=== PATIENT | female | born 1950 | race African-American/Black ===

== ENCOUNTER 2016-11-18 09:58 | Emergency (ER) | payer OTHER ==
[2016-11-18 10:14] VITALS: BMI 37.5
--- NOTE | 2016-11-18 10:33 | PDOC ---
History of Present Illness - General History Source: Patient Exam Limitations: No Limitations <Debby Gloria - Last Filed: 11/18/16 12:10> - General History Source: Patient Exam Limitations: No Limitations - History of Present Illness Initial Comments: 11/18/16 11:50 The patient is a 66-year-old female with a significant past medical history of diabetes, hypertension, and hypercholesterolemia, and presents to the emergency department with fever, sore throat, and body aches for 2 days. The patient reports a fever (Tmax 102 F). She reports associated headache, rhinorrhea, and a non-productive cough. She states she took Motrin and Tylenol yesterday with minimal relief. The patient denies any sick contacts or recent travel. She reports she received the flu shot this year. The patient denies chest pain, shortness of breath and dizziness. The patient denies chills, abdominal pain, nausea, vomit, diarrhea and constipation. The patient denies dysuria, frequency, urgency and hematuria. Allergies: NKDA Social History: Denies any toxic habits PCP: Dr. Hunter Olmstead <Jhoana Mak - Last Filed: 11/18/16 12:17> - General Chief Complaint: Respiratory Stated Complaint: FEVER/BODY PAIN Time Seen by Provider: 11/18/16 10:23 Past History - Past Medical History Diabetes: Yes HTN: Yes Hypercholesterolemia: Yes - Psycho/Social/Smoking Cessation Hx Anxiety: No Suicidal Ideation: No Smoking Status: No Smoking History: Never smoked Have you smoked in the past 12 months: No Number of Cigarettes Smoked Daily: 0 Information on smoking cessation initiated: No Hx Alcohol Use: No Drug/Substance Use Hx: No Substance Use Type: None <Debby Gloria - Last Filed: 11/18/16 12:10> <Jhoana Mak - Last Filed: 11/18/16 12:17> - Past Medical History Allergies/Adverse Reactions: Allergies Allergy/AdvReac Type Severity Reaction Status Date / Time No Known Allergies Allergy Verified 11/18/16 10:12 Home Medications: Ambulatory Orders Glipizide 5 mg PO DAILY 11/18/16 Lisinopril [Prinivil -] 40 mg PO DAILY 11/18/16 Oseltamivir Phosphate [Tamiflu -] 75 mg PO BID #10 capsule 11/18/16 Sitagliptin Phos/Metformin HCl [Janumet 50-1,000 mg Tablet] 1 each PO BID Review of Systems - Review of Systems Able to Perform ROS?: Yes Comments:: 11/18/16 11:50 GENERAL/CONSTITUTIONAL: (+) Fever. No chills. No weakness. HEAD, EYES, EARS, NOSE AND THROAT: (+) Sore throat. (+) Rhinorrhea. No change in vision. No ear pain or discharge. CARDIOVASCULAR: No chest pain or shortness of breath. RESPIRATORY: (+) Cough. No wheezing, or hemoptysis. GASTROINTESTINAL: No nausea, vomiting, diarrhea or constipation. GENITOURINARY: No dysuria, frequency, or change in urination. MUSCULOSKELETAL: (+) Body aches. No joint or muscle swelling. No neck or back pain. SKIN: No rash NEUROLOGIC: (+) Headache. No vertigo, loss of consciousness, or change in strength/sensation. ENDOCRINE: No increased thirst. No abnormal weight change. HEMATOLOGIC/LYMPHATIC: No anemia, easy bleeding, or history of blood clots. ALLERGIC/IMMUNOLOGIC: No hives or skin allergy. <Jhoana Mak - Last Filed: 11/18/16 12:17> *Physical Exam - Vital Signs Last Vital Signs Temp Pulse Resp BP Pulse Ox 98.7 F 114 H 18 142/77 97 11/18/16 10:12 11/18/16 10:12 11/18/16 10:12 11/18/16 10:12 11/18/16 10:12 <Debby Gloria - Last Filed: 11/18/16 12:10> - Vital Signs Last Vital Signs Temp Pulse Resp BP Pulse Ox 98.7 F 114 H 18 142/77 97 11/18/16 10:12 11/18/16 10:12 11/18/16 10:12 11/18/16 10:12 11/18/16 10:12 - Physical Exam Comments: 11/18/16 11:51 GENERAL: Awake, alert, and fully oriented, in no acute distress HEAD: No signs of trauma EYES: PERRLA, EOMI, sclera anicteric, conjunctiva clear ENT: Auricles normal inspection, hearing grossly normal, nares patent, oropharynx clear without exudates. Moist mucosa NECK: Normal ROM, supple, no lymphadenopathy, JVD, or masses LUNGS: Breath sounds equal, clear to auscultation bilaterally. No wheezes, and no crackles HEART: Regular rate and rhythm, normal S1 and S2, no murmurs, rubs or gallops ABDOMEN: Soft, nontender, normoactive bowel sounds. No guarding, no rebound. No masses EXTREMITIES: Normal range of motion, no edema. No clubbing or cyanosis. No cords, erythema, or tenderness NEUROLOGICAL: Cranial nerves II through XII grossly intact. Normal speech, normal gait SKIN: Warm, Dry, normal turgor, no rashes or lesions noted. <Jhoana Mak - Last Filed: 11/18/16 12:17> Heart Score/ECG Review #1 ECG reviewed & interpreted by me at: 11:15 11/18/16 11:15 Twelve-lead EKG was performed and reviewed by me. There is normal sinus rhythm with a tachycardiac rate of 105 bpm. The axis is normal. The intervals are normal - pr:134ms, QRS:84, QTc:420ms. There are no ST elevations or depressions. non specific T wave changes. (+) PVC <Debby Gloria - Last Filed: 11/18/16 12:10> ED Treatment Course - LABORATORY CBC & Chemistry Diagram: 11/18/16 11:20 11/18/16 11:20 <Debby Gloria - Last Filed: 11/18/16 12:10> - LABORATORY CBC & Chemistry Diagram: 11/18/16 11:20 11/18/16 11:20 - ADDITIONAL ORDERS Additional order review: Laboratory Results 11/18/16 11:20 Sodium 139 Potassium 4.6 Chloride 101 Carbon Dioxide 26 Anion Gap 12 BUN 21 H Creatinine 1.3 H D Random Glucose 196 H D Calcium 9.5 11/18/16 11:20 RBC 4.22 MCV 82.2 MCHC 32.8 RDW 14.7 MPV 7.4 L Neutrophils % 63.3 D Lymphocytes % 22.0 D Monocytes % 13.7 H Eosinophils % 0.3 D Basophils % 0.7 - RADIOLOGY Radiograph Interpretation: 11/18/16 12:17 RAD/ Chest PA & LAT Reviewed by: Dr. Debby Gloria Interpreted by: Dr. Chris Hogan IMPRESSION: No evidence of pneumonia, atelectasis, pleural effusion or pneumothorax. - Medications Given in the ED: ED Medications Discontinued Medications Generic Name Dose Route Start Last Admin Trade Name Ирина PRN Reason Stop Dose Admin Sodium Chloride 1,000 mls @ 1,000 mls/hr 11/18/16 10:45 11/18/16 11:30 Normal Saline - IV 11/18/16 11:44 1,000 mls/hr ASDIR STA Administration Ibuprofen 800 mg 11/18/16 10:45 11/18/16 11:31 Caldolor Injection - IVPB 11/18/16 10:46 800 mg ONCE ONE Administration <Jhoana Mak - Last Filed: 11/18/16 12:17> Medical Decision Making - Medical Decision Making 11/18/16 10:33 A portion of this note was documented by scribe services under my direction. I have reviewed the details of the note, within reason, and agree with the documentation with the following case summary and management plan written by me. Nursing documentation reviewed and incorporated into medical decision making 11/18/16 11:57 This is a 66 yo F presenting to the ER with body ached, fevers, cough, sore throat Pt states that her symptoms began 2 days ago No recent travel No ill contacts Pt did get a flu shot Took tylenol last night Laboratory Tests 11/18/16 11/18/16 11:20 11:20 WBC 6.5 Hgb 11.4 D Hct 34.7 Plt Count 262 BUN 21 H Creatinine 1.3 H D CXR: no infiltrate Influenza A (+) Will: Repeat vitals Will discharge to home I have counselled patient re: Tamiflu Will ask pt to take tylenol and motrin and tylenol Clinical Impression: Influenza <eDbby Gloria - Last Filed: 11/18/16 12:10> *DC/Admit/Observation/Transfer - Discharge Dispostion Admit: No <Debby Gloria - Last Filed: 11/18/16 12:10> <Jhoana Mak - Last Filed: 11/18/16 12:17> Diagnosis at time of Disposition: Influenza A - Discharge Dispostion Disposition: HOME Condition at time of disposition: Improved - Prescriptions Prescriptions: Oseltamivir Phosphate [Tamiflu -] 75 mg PO BID #10 capsule - Referrals Referrals: Hunter Olmstead MD [Primary Care Provider] - - Patient Instructions Printed Discharge Instructions: DI for Influenza -- Adult Additional Instructions: Ursula, Thank you for coming in to the ER today You have the Flu Please: Drink lots of fluids Rest Take Tylenol 1000mg (2 extre strength tylenol) or Motrin 600mg (3 tabs) in alternation as needed for body aches Please follow up with your primary care physician Return to the ER for any other concerns or complaints You will slowly begin to feel better over the next week
[2016-11-18] MEDS ORDERED: IBUPROFEN 800 MG/8 ML IJ IVPB ONE ×2 (10:45→11:03)
[2016-11-18] MEDS ORDERED: SODIUM CHLORIDE 1,000 ML IV STA (10:45)
[2016-11-18 11:31] LABS: BASOPHIL 0.7 % (0-2.0); EOSINOPHIL 0.3 % (0-4.5); MCHC 32.8 g/dl (32.0-36.0); MEAN CELL VOLUME 82.2 fl (80-96); MEAN PLT VOLUME 7.4 fl (7.5-11.1); NEUTROPHILS 63.3 % (42.8-82.8); PLATELET COUNT 262 K/MM3 (134-434); RDW 14.7 % (11.6-15.6); WHITE BLOOD COUNT 6.5 K/mm3 (4.0-10.0)
[2016-11-18 11:48] LABS: CALCIUM 9.5 mg/dL (8.5-10.1); CREATININE 1.3 mg/dL (0.55-1.02)
[2016-11-18 12:05] VITALS: BP 148/76; PULSE 94; TEMP 99
--- NOTE | 2016-11-18 14:09 | EKG ---
Test Reason : Blood Pressure : / mmHG Vent. Rate : 105 BPM Atrial Rate : 105 BPM P-R Int : 134 ms QRS Dur : 084 ms QT Int : 318 ms P-R-T Axes : 051 -09 059 degrees QTc Int : 420 ms SINUS TACHYCARDIA WITH OCCASIONAL PREMATURE VENTRICULAR COMPLEXES OTHERWISE NORMAL ECG WHEN COMPARED WITH ECG OF 27-FEB-2001 13:49, PREMATURE VENTRICULAR COMPLEXES ARE NOW PRESENT Confirmed by MICHELINE CAMEJO, CHARLIE ([id number]) on 11/18/2016 2:09:23 PM Referred By: Confirmed By:CHARLIE TOBIAS MD
== END 2016-11-18 12:32 | disposition home or self-care (01) ==
LOC: JER 09:58
PROC: 3E0333Z Introduction of Anti-inflammatory into Peripheral Vein, Percutaneous Approach (ICD-10-PCS; principal; 2016-11-18)
DX: J09.X2 Influenza due to identified novel influenza A virus with other respiratory manifestations (principal); I10 Essential (primary) hypertension; E11.9 Type 2 diabetes mellitus without complications; Z79.84 Long term (current) use of oral hypoglycemic drugs; E78.00 Pure hypercholesterolemia, unspecified
CPT/HCPCS: 36415; 71020-TC; 80048; 85025; 87804; 93005; 93010; 99284-25